=== PATIENT | female | born 1945 | race Caucasian/White ===

== ENCOUNTER 2018-06-08 10:31 | Emergency (ER) | payer MEDICARE, OTHER ==
[2018-06-08] MEDS ORDERED: ONDANSETRON HCL INJ/PF 4 MG/2 ML SDV IV ONE (10:50)
--- NOTE | 2018-06-08 10:52 | ER Document Report ---
ED Medical Screen (RME) - General Chief Complaint: Dizziness Stated Complaint: WEAKNESS Time Seen by Provider: 06/08/18 10:45 Mode of Arrival: Wheelchair Information source: Patient Notes: Patient is a 73-year-old female who presents the emergency department complaint of dyspnea, weakness and fatigue. 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 She states she is currently pending another transplant. She is from [place] and is visiting. She states that over the last couple of days she has increased dyspnea on exertion. She denies any history of CHF or COPD. She states in the past she has had to have multiple blood transfusions. Exam: Patient alert, answering all questions appropriately. Lung sounds are clear to auscultation bilaterally. I have greeted and performed a rapid initial assessment of this patient. A comprehensive ED assessment and evaluation of the patient, analysis of test results and completion of the medical decision making process will be conducted by additional ED providers. Dictation of this chart was performed using voice recognition software; therefore, there may be some unintended grammatical errors. TRAVEL OUTSIDE OF THE [place] IN LAST 30 DAYS: No - Related Data Allergies/Adverse Reactions: No Known Allergies Allergy (Verified 06/08/18 10:32) Past Medical History - Social History Chew tobacco use (# tins/day): No Frequency of alcohol use: Rare Drug Abuse: None - Past Medical History Cardiac Medical History: Reports: Hx Hypertension Renal/ Medical History: Denies: Hx Peritoneal Dialysis Past Surgical History: Reports: Hx Section. Denies: Hx Kidney (Renal Surgery) - x transplants Physical Exam - Vital signs Vitals: Temp Pulse Resp BP Pulse Ox 98.4 F 75 18 145/59 H 91 L 06/08/18 10:41 06/08/18 10:41 06/08/18 10:41 06/08/18 10:41 06/08/18 10:41 Course - Vital Signs Vital signs: Temp Pulse Resp BP Pulse Ox 98.4 F 75 18 145/59 H 91 L 06/08/18 10:41 06/08/18 10:41 06/08/18 10:41 06/08/18 10:41 06/08/18 10:41
[2018-06-08 11:40] LABS: MEAN CORPUSCULAR HEMOGLOBIN 35.9 pg (27.0-33.4); MEAN CORPUSCULAR HGB CONC 31.9 g/dL (32.0-36.0); PLATELET COUNT 205 10^3/uL (150-450); RED BLOOD COUNT 1.69 10^6/uL (3.72-5.28); RED CELL DISTRIBUTION WIDTH 19.2 % (11.5-14.0); WHITE BLOOD COUNT 5.3 10^3/uL (4.0-10.5)
[2018-06-08 11:41] LABS: ALANINE AMINOTRANSFERASE 27 U/L (9-52); ALKALINE PHOSPHATASE 139 U/L (38-126); ANION GAP 15 (5-19); ASPARTATE AMINO TRANSFERASE 15 U/L (14-36); BILIRUBIN,DIRECT 0.3 mg/dL (0.0-0.4); BILIRUBIN,TOTAL 0.6 mg/dL (0.2-1.3); CALCIUM 8.4 mg/dL (8.4-10.2); CARBON DIOXIDE 16 mmol/L (22-30); CHLORIDE 106 mmol/L (98-107); GLUCOSE 88 mg/dL (75-110); POTASSIUM 5.7 mmol/L (3.6-5.0); SODIUM 137.3 mmol/L (137-145); TOTAL PROTEIN 6.4 g/dL (6.3-8.2)
[2018-06-08] MEDS ORDERED: ALBUTEROL SULFATE 0.083% NEB 2.5 MG/3 ML AMPUL NEB ONE (11:41)
[2018-06-08 11:42] LABS: HEMOGLOBIN 6.1 g/dL (12.0-15.5); MEAN CORPUSCULAR VOLUME 113 fl (80-97)
[2018-06-08] MEDS ORDERED: NORMAL SALINE 250 ML IV PRN (11:45)
--- NOTE | 2018-06-08 11:50 | RADIOLOGY REPORT (SQ) ---
EXAM DESCRIPTION: CHEST SINGLE VIEW COMPLETED DATE/TIME: 06/08/2018 11:16 am REASON FOR STUDY: shortness of breath COMPARISON: None. NUMBER OF VIEWS: One view. TECHNIQUE: Single frontal radiographic view of the chest acquired. LIMITATIONS: None. FINDINGS: LUNGS AND PLEURA: Perihilar edema with indistinct vessels and mild interstitial edema. MEDIASTINUM AND HILAR STRUCTURES: Mild fullness in the central pulmonary vascularity. No guille conto ur abnormalities. HEART AND VASCULAR STRUCTURES: Cardiomegaly. BONES: Osteopenic. HARDWARE: None in the chest. OTHER: No other significant finding. IMPRESSION: 1. Cardiomegaly and mild pulmonary edema. TECHNICAL DOCUMENTATION: JOB ID: [id number]- All Rights Reserved Reading location - IP/workstation name: [email or web address]
[2018-06-08 11:51] LABS: BLOOD UREA NITROGEN 123 mg/dL (7-20)
[2018-06-08 12:04] LABS: ABSOLUTE LYMPHOCYTES# (MANUAL) 0.6 10^3/uL (0.5-4.7); ABSOLUTE MONOCYTES # (MANUAL) 0.4 10^3/uL (0.1-1.4); ABSOLUTE NEUTROPHILS# (MANUAL) 4.1 10^3/uL (1.7-8.2); BASOPHILS % (MANUAL) 2 % (0-2); EOSINOPHILS % (MANUAL) 1 % (0-6); LYMPHOCYTES % (MANUAL) 12 % (13-45); MONOCYTES % (MANUAL) 7 % (3-13); SEGMENTED NEUTROPHILS % (MAN) 78 % (42-78); TOTAL CELLS COUNTED 100
[2018-06-08 12:05] LABS: ANISOCYTOSIS 2+; OVALOCYTES 1+; PLATELET COMMENT ADEQUATE; POIKILOCYTOSIS 1+; TOXIC GRANULATION 1+
--- NOTE | 2018-06-08 12:14 | ER Document Report ---
ED General - General Chief Complaint: Dizziness Stated Complaint: WEAKNESS Time Seen by Provider: 06/08/18 10:45 Mode of Arrival: Wheelchair Notes: This is a pleasant 73-year-old female patient emergency department chief complaint of feeling weak and shortness of breath. Patient is from [facility]. Has had 2 kidney transplants. On Procrit and cyclosporine. Has had blood transfusions in the past. States that she has excessive amount of shortness of breath with ambulation. Denies any chest pain. Denies any abdominal pain. No other major symptoms at this time. TRAVEL OUTSIDE OF THE [place] IN LAST 30 DAYS: No - HPI Onset: Last week Onset/Duration: Gradual, Constant, Worse Severity: Moderate Pain Level: Denies Associated symptoms: Shortness of breath. denies: Chest pain, Hurts to breath - Related Data Allergies/Adverse Reactions: No Known Allergies Allergy (Verified 06/08/18 10:32) Past Medical History - General Information source: Patient - Social History Smoking Status: Never Smoker Chew tobacco use (# tins/day): No Frequency of alcohol use: Rare Drug Abuse: None Lives with: Spouse/Significant other Family History: Reviewed & Not Pertinent Patient has suicidal ideation: No Patient has homicidal ideation: No - Past Medical History Cardiac Medical History: Reports: Hx Hypertension Renal/ Medical History: Reports: Hx End Stage Renal Disease, Hx Renal Insufficiency, Other - History of kidney transplant. Denies: Hx Peritoneal Di alysis Past Surgical History: Reports: Hx Section, Other - Kidney transplant. Denies: Hx Kidney (Renal Surgery) - x transplants Review of Systems - Review of Systems Notes: Constitutional: denies: Chills, Diaphoresis, Fever, +Malaise, +Weakness EENT: denies: Eye discharge, Blurred vision, Tearing, Double vision, Nose congestion, Nose discharge, Throat swelling, Mouth pain Cardiovascular: denies: Palpitations, Heart racing, Orthopnea, +Dyspnea, -Chest pain Respiratory: denies: Cough, Hurts to breathe, Wheezing, +Shortness of breath Gastrointestinal: denies: Abdominal pain, Diarrhea, Nausea, Vomiting, Black stools, bright red blood in stool Genitourinary: denies: Burning, Dysuria, Discharge, Frequency, Flank pain, Hematuria Musculoskeletal: denies: Joint pain, Joint swelling, Muscle pain, Muscle stiffness, back pain Hematologic/Lymphatic: denies: Anemia, Easy bleeding, Easy bruising, Blood clots Neurological/Psychological: denies: Confusion, Dementia, Depression, Loss of con sciousness Skin: No lesions, no masses, no skin breakdown, no abscesses Physical Exam - Vital signs Vitals: Temp Pulse Resp BP Pulse Ox 98.4 F 75 18 145/59 H 91 L 06/08/18 10:41 06/08/18 10:41 06/08/18 10:41 06/08/18 10:41 06/08/18 10:41 Interpretation: Normal - General General appearance: Appears well, Alert - HEENT Head: Normocephalic, Atraumatic Eyes: Normal Pupils: PERRL - Respiratory Respiratory status: No respiratory distress Chest status: Nontender Breath sounds: Normal Chest palpation: Normal - Cardiovascular Rhythm: Regular Heart sounds: Normal auscultation Murmur: No - Abdominal Inspection: Normal Distension: No distension Bowel sounds: Normal Tenderness: Nontender Organomegaly: No organomegaly - Back Back: Normal, Nontender - Extremities General upper extremity: Normal inspection, Nontender, Normal color, Normal ROM, Normal temperature, Other - There is a thrill and bruit AV fistula site right upper extremity. General lower extremity: Normal inspection, Nontender, Normal color, Normal ROM, Normal temperature, Normal weight bearing. No: Rafa's sign - Neurological Neuro grossly intact: Yes Cognition: Normal Orientation: AAOx4 Roma Coma Scale Eye Opening: Spontaneous Roma Coma Scale Verbal: Oriented Roma Coma Scale Motor: Obeys Commands Roma Coma Scale Total: 15 Speech: Normal Motor strength normal: LUE, RUE, LLE, RLE Sensory: Normal - Psychological Associated symptoms: Normal affect, Normal mood - Skin Skin Temperature: Warm Skin Moisture: Dry Skin Color: Normal Course - Re-evaluation Re-evalutation: 06/08/18 14:23 At this time patient is unfortunately having an acute on chronic renal failure with a history of kidney transplant. Patient is significantly symptomatic and anemic. Will require blood transfusions. Unfortunately her potassium is 5.7 and undoubtedly the transfusion is going to raise her potassium so we will need to start her on some Lasix. We do not have dialysis here. 06/08/18 14:[address] Leon at [facility]. They are going to accept patient as a transfer. She recommends giving the patient 40 of Lasix IV and beginning transfusion. We will keep patient in the ER here and anticipate transfer shortly. Patient has completed the first unit of blood and receiving second unit of blood at this time. Patient tolerating transfusion well. I have ordered all of her standing medications for this evening. Laboratory 06/08/18 06/08/18 06/08/18 11:10 11:10 11:10 WBC 5.3 RBC 1.69 L Hgb 6.1 L Hct 19.0 L MCV 113 H MCH 35.9 H MCHC 31.9 L RDW 19.2 H Plt Count 205 Total Counted 100 Seg Neutrophils % Not Reportable Seg Neuts % (Manual) 78 Lymphocytes % Not Reportable Lymphocytes % (Manual) 12 L Monocytes % Not Reportable Monocytes % (Manual) 7 Eosinophils % Not Reportable Eosinophils % (Manual) 1 Basophils % Not Reportable Basophils % (Manual) 2 Absolute Neutrophils Not Reportable Abs Neuts (Manual) 4.1 Absolute Lymphocytes Not Reportable Abs Lymphs (Manual) 0.6 Absolute Monocytes Not Reportable Abs Monocytes (Manual) 0.4 Absolute Eosinophils Not Reportable Absolute Eos (Manual) 0.1 Absolute Basophils Not Reportable Abs Basophils (Manual) 0.1 Toxic Granulation 1+ Platelet Comment ADEQUATE Poikilocytosis 1+ Anisocytosis 2+ Macrocytosis 3+ Ovalocytes 1+ Sodium 137.3 Potassium 5.7 H Chloride 106 Carbon Dioxide 16 L Anion Gap 15 BUN 123 H Creatinine 5.10 H Est GFR ( Amer) 10 L Est GFR (Non-Af Amer) 8 L Glucose 88 Calcium 8.4 Total Bilirubin 0.6 Direct Bilirubin 0.3 Neonat Total Bilirubin Not Reportable Neonat Direct Bilirubin Not Reportable Neonat Indirect Bili Not Reportable AST 15 ALT 27 Alkaline Phosphatase 139 H Troponin I NT-Pro-B Natriuret Pep Total Protein 6.4 Albumin 4.0 Urine Color Urine Appearance Urine pH Ur Specific [place] Urine Protein Urine Glucose (UA) Urine Ketones Urine Blood Urine Nitrite Urine Bilirubin Urine Urobilinogen Ur Leukocyte Esterase Urine WBC (Auto) Urine Ascorbic Acid Blood Type A POSITIVE Blood Type Confirm Antibody Screen NEGATIVE Crossmatch See Detail 06/08/18 06/08/18 06/08/18 11:10 12:17 13:43 WBC RBC Hgb Hct MCV MCH MCHC RDW Plt Count Total Counted Seg Neutrophils % Seg Neuts % (Manual) Lymphocytes % Lymphocytes % (Manual) Monocytes % Monocytes % (Manual) Eosinophils % Eosinophils % (Manual) Basophils % Basophils % (Manual) Absolute Neutrophils Abs Neuts (Manual) Absolute Lymphocytes Abs Lymphs (Manual) Absolute Monocytes Abs Monocytes (Manual) Absolute Eosinophils Absolute Eos (Manual) Absolute Basophils Abs Basophils (Manual) Toxic Granulation Platelet Comment Poikilocytosis Anisocytosis Macrocytosis Ovalocytes Sodium Potassium Chloride Carbon Dioxide Anion Gap BUN Creatinine Est GFR ( Amer) Est GFR (Non-Af Amer) Glucose Calcium Total Bilirubin Direct Bilirubin Neonat Total Bilirubin Neonat Direct Bilirubin Neonat Indirect Bili AST ALT Alkaline Phosphatase Troponin I 0.025 NT-Pro-B Natriuret Pep 15141 H Total Protein Albumin Urine Color STRAW Urine Appearance CLEAR Urine pH 7.0 Ur Specific [place] 1.010 Urine Protein 30 H Urine Glucose (UA) NEGATIVE Urine Ketones NEGATIVE Urine Blood NEGATIVE Urine Nitrite NEGATIVE Urine Bilirubin NEGATIVE Urine Urobilinogen NEGATIVE Ur Leukocyte Esterase SMALL H Urine WBC (Auto) 2 Urine Ascorbic Acid 20 H Blood Type Blood Type Confirm A POSITIVE Antibody Screen Crossmatch Chest X-Ray 06/08/18 10:49 IMPRESSION: 1. Cardiomegaly and mild pulmonary edema. 06/08/18 17:10 06/08/18 18:20 Patient remained stable at this time. She is on her second unit of blood and finishing it. All of her home medications have been given. Transport should be here at approximately 2000 hrs. - Vital Signs Vital signs: Temp Pulse Resp BP Pulse Ox 98.4 F 72 19 163/73 H 97 06/08/18 18:00 06/08/18 14:05 06/08/18 18:02 06/08/18 18:02 06/08/18 18:02 - Laboratory Result Diagrams: 06/08/18 11:10 06/08/18 11:10 Laboratory results interpreted by me: 06/08/18 06/08/18 06/08/18 11:10 11:10 11:10 RBC 1.69 L Hgb 6.1 L Hct 19.0 L MCV 113 H MCH 35.9 H MCHC 31.9 L RDW 19.2 H Lymphocytes % (Manual) 12 L Potassium 5.7 H Carbon Dioxide 16 L BUN 123 H Creatinine 5.10 H Est GFR ( Amer) 10 L Est GFR (Non-Af Amer) 8 L Alkaline Phosphatase 139 H NT-Pro-B Natriuret Pep Urine Protein Ur Leukocyte Esterase Urine Ascorbic Acid Crossmatch See Detail 06/08/18 06/08/18 11:10 13:43 RBC Hgb Hct MCV MCH MCHC RDW Lymphocytes % (Manual) Potassium Carbon Dioxide BUN Creatinine Est GFR ( Amer) Est GFR (Non-Af Amer) Alkaline Phosphatase NT-Pro-B Natriuret Pep 13239 H Urine Protein 30 H Ur Leukocyte Esterase SMALL H Urine Ascorbic Acid 20 H Crossmatch - EKG Interpretation by Me EKG shows normal: Sinus rhythm [place]/QRS: Left axis deviation Voltage: Consistant with LVH Heart block present: 1st Degree Critical Care Note - Critical Care Note Total time excluding time spent on procedures (mins): 60 Comments: Acute on chronic renal failure, hyperkalemia, symptomatic anemia, consultation with specialist, coordination of transfer of care. Discharge - Discharge Clinical Impression: Symptomatic anemia, Hyperkalemia Renal failure (ARF), acute on chronic Qualifiers: Acute renal failure type: unspecified Chronic kidney disease stage: stage 5, not on chronic dialysis Qualified Code(s): N17.9 - Acute kidney failure, unspecified CHF (congestive heart failure) Qualifiers: Heart failure type: unspecified Heart failure chronicity: unspecified Qualified Code(s): I50.9 - Heart failure, unspecified Condition: Fair Disposition: [facility]
[2018-06-08 12:22] LABS: TROPONIN I 0.025 ng/mL
--- NOTE | 2018-06-08 13:07 | EKG REPORT ---
SEVERITY:- ABNORMAL ECG - SINUS RHYTHM FIRST DEGREE AV BLOCK PROBABLE LEFT ATRIAL ABNORMALITY LVH WITH SECONDARY REPOLARIZATION ABNORMALITY : Confirmed by: Óscar Zambrano 08-Jun-2018 13:07:02
[2018-06-08] MEDS ORDERED: FUROSEMIDE INJ/PF 40 MG/4 ML SDV IV ONE (14:15)
[2018-06-08 14:28] LABS: APPEARANCE,URINE CLEAR; BILIRUBIN,URINE NEGATIVE (NEGATIVE); COLOR,URINE STRAW; GLUCOSE, URINE NEGATIVE (NEGATIVE); KETONES,URINE NEGATIVE (NEGATIVE); LEUKOCYTE ESTERASE,URINE SMALL (NEGATIVE); NITRITE,URINE NEGATIVE (NEGATIVE); PROTEIN,URINE 30 mg/dL (NEGATIVE); UROBILINOGEN,URINE NEGATIVE mg/dL (<2.0)
[2018-06-08] MEDS ORDERED: CYCLOSPORINE, MODIFIED 25 MG CAPSULE PO ONE (17:34)
[2018-06-08] MEDS ORDERED: AMLODIPINE BESYLATE 10 MG TABLET PO SCH (18:00)
[2018-06-08] MEDS ORDERED: SODIUM BICARBONATE 650 MG TABLET PO SCH (18:00)
[2018-06-08] MEDS ORDERED: CYCLOSPORINE, MODIFIED 25 MG CAPSULE PO SCH (18:00)
[2018-06-08] MEDS ORDERED: LEVETIRACETAM 500 MG TABLET PO SCH (18:00)
[2018-06-08 20:21] VITALS: BP 171/76
[2018-06-08] MEDS ORDERED: METOPROLOL TARTRATE 100 MG TABLET PO SCH (22:00)
[2018-06-08] MEDS ORDERED: HYDRALAZINE HCL 25 MG TABLET PO SCH (22:00)
[2018-06-08] MEDS ORDERED: ATORVASTATIN CALCIUM 10 MG TABLET PO SCH (22:00)
[2018-06-09] MEDS ORDERED: CYCLOSPORINE, MODIFIED 25 MG CAPSULE PO SCH (08:00)
[2018-06-09] MEDS ORDERED: LOSARTAN POTASSIUM 50 MG TABLET PO SCH (08:00)
[2018-06-09] MEDS ORDERED: PREDNISONE 5 MG TABLET PO SCH (08:00)
[2018-06-10 14:26] LABS: PATH REVIEW PATHOLOGIST REVIEWED
== END 2018-06-08 18:30 | disposition short-term general hospital (02) ==
LOC: ER 10:31
DX: I13.2 Hypertensive heart and chronic kidney disease with heart failure and with stage 5 chronic kidney disease, or end stage renal disease (principal); N18.5 Chronic kidney disease, stage 5; I50.9 Heart failure, unspecified; D63.1 Anemia in chronic kidney disease; N17.9 Acute kidney failure, unspecified; Z94.0 Kidney transplant status; Z79.899 Other long term (current) drug therapy; R06.02 Shortness of breath; R53.1 Weakness; E87.5 Hyperkalemia
CPT/HCPCS: 93005; 94640; 99291; 96374; 96375; 86900; 86901; 36415; 36430; 86850; 85025; 80053; 81001; 84484; 86920; 83880; 71045; 93010; P9016; A9270 ×4; J1940; J2405; J7515